=== PATIENT | female | born 1980 | race Caucasian/White ===

== ENCOUNTER 2019-12-02 18:15 | Emergency (ER) | payer BC, SELFPAY ==
--- NOTE | ~2019-12-02 | CT_ITS ---
EXAMINATION: CT abdomen pelvis w con DATE: 12/02/2019 19:56 INDICATION: Bilateral flank pain, left worse than right. Nausea, vomiting, and fever. TECHNIQUE: Computed tomography (CT) of the abdomen and pelvis was performed with 100 mL Omnipaque 350 intravenous contrast. Automated exposure control and iterative reconstruction technique were employe d. The dose-length product was 1457.40 mGy-cm. COMPARISON: CT abdomen and pelvis 01/21/2014 FINDINGS: The visualized portions of the lung bases demonstrate mild atelectasis. No pleural effusion . The heart size is normal. No pericardial effusion. The liver and spleen are normal. There are pearce es of cholecystectomy. The pancreas, adrenal glands, and kidneys are normal. There is diverticulosis of the colon without evidence of diverticulitis. There are no dilated loops of bowel. The appendix is normal. There are no pathologically enlarged lymph nodes. There is no free intraperitoneal fluid. Th ere are changes of anterior and posterior fusion procedures at L4-L5. IMPRESSION: 1. No etiology for the patient's symptoms. Reviewed, dictated and finalized at location A.
--- NOTE | 2019-12-02 18:26 | ED.FEMALEGU ---
HPI - Female Genitourinary General Chief complaint: Abdominal Pain Stated complaint: kidney pain, vomiting, diarrhea Time Seen by Provider: 12/02/19 18:38 Source: patient and family Mode of arrival: ambulatory Limitations: no limitations History of Present Illness HPI Narrative: 39-year-old comes in today complaining of bilateral flank pain, left greater than right, that has been present for 4 days. Patient states that in last 24 hours she has had some nausea and vomiting and diarrhea. She denies fever, cough, cold symptoms, hematuria however she has had some frequent urination. She has remote history of UTIs and no history of urolithiasis. MD elicited complaint: flank pain Onset (ago): day(s) (4) Location of symptoms: flank (L>R) Severity: moderate Female Urogenital Radiation: LLQ Quality of pain: sharp Consistency: constant Vaginal discharge: none Vaginal bleeding: none Urinary symptoms: Urgency and Frequency Exacerbating factors: palpation Relieving factors: none Associated symptoms: nausea and vomiting Patient : No Related Data Home Medications Medication Instructions Recorded Confirmed metoprolol succinate 50 mg PO DAILY 12/02/19 12/02/19 Allergies Allergy/AdvReac Type Severity Reaction Status Date / Time codeine Allergy Unknown Verified 12/02/19 18:49 Review of Systems Constitutional: Constitutional: Denies chills and Denies fatigue Comments: No fever Eyes: Eyes: Denies change in vision and Denies photophobia ENT: Denies dysphagia, Denies nasal congestion and Denies sore throat Cardiovascular: Cardiovascular: Denies chest pain and Denies radiating jaw, neck or arm pain Respiratory: Respiratory: Denies cough, Denies dyspnea and Denies wheezing Gastrointestinal: Gastrointestinal: Reports diarrhea, Reports nausea and Reports vomiting Genitourinary: Genitourinary: Denies hematuria, Reports nocturia, Denies dysuria and Denies urinary incontinence Musculoskeletal: Musculoskeletal: Denies arthralgias and Denies joint swelling Integumentary/Breasts: Skin/Breast: Denies pruritus, Denies erythema and Denies rash Neurologic: Denies vertigo, Denies dizziness and Denies syncope Endocrine: Endocrine: Denies polydipsia and Reports polyuria Hematologic/Lymphatic: Hematologic/Lymphatic: Denies easy bleeding and Denies easy bruising Allergic/Immunologic: Allergic/Immunologic: Denies lip swelling and Denies wheezing PMFSH Past Medical History Medical History Hypertension Surgical History Surgical History History of back surgery History of hysterectomy Social History Social History Smoking status: Never smoker Alcohol intake: never Substance use: current Substance use type: marijuana Living arrangements: with family Exam Const: General: healthy appearing and alert Nutritional Appearance: obese Orientation/consciousness: patient oriented x3 Other: moderate acute distress HENMT: Ears: external ears normal, TM's normal bilaterally and EAC's normal Mouth: Yes Normal oral and palatal mucosa present and Yes moist mucous membranes Throat: posterior oropharynx normal and uvula midline Eyes: Conjunctivae: conjunctivae normal Pupils: Equal, round and reactive pupils present EOM: EOMs intact bilaterally Resp: Effort & Inspection: normal respiratory effort and not labored Auscultation: clear to auscultation bilaterally, no rales, no rhonchi and no wheezes Cardio: Rate: regular rate Rhythm: regular rhythm Heart sounds: no murmurs GI: GI Palp: Yes Soft to palpation, Yes Tenderness to palpation present (GI) ( left lower quadrant and bilateral flanks, left greater than ri), No Guarding due to palpation present (GI), No Rigid due to palpation and No Rebound tenderness present Back/Spine/Pelvis: Back: CVA tenderness Skin:
[2019-12-02 18:39] VITALS: BP 177/99; PULSE 104; RESP 18; TEMP 36.8; O2SAT 99
[2019-12-02 19:00] LABS: Hematocrit 44.6 % (35.0-49.0); Hemoglobin 15.3 g/dL (12.0-15.0); Mean Corpuscular HGB Conc 34.3 g/dL (32.0-36.0); Mean Corpuscular Hemoglobin 32.5 pg (27.0-31.0); Mean Corpuscular Volume 94.7 fL (78.0-102.0); Mean Platelet Volume 9.3 fl (9.2-11.8); Platelet Count Result 313 K/mm3 (150-420); Red Blood Count 4.71 M/mm3 (4.20-5.40); Red Cell Distribution Width 12.8 % (11.6-14.4); White Blood Count 11.1 K/mm3 (4.8-10.8)
[2019-12-02] MEDS: ONDANSETRON INJ 4 MG/2 ML VIAL IV PUSH (19:08)
[2019-12-02 19:09] LABS: Add Urine Microscopic? YES; Appearance Urine Clear (Clear); Bilirubin Urine 1+ (Negative); Blood Urine Negative (Negative); Color Urine Yellow (Yellow); Glucose Urine UA Negative (Negative); Ketones Urine Trace (Negative); Leukocyte Esterase Ur Negative (Negative); Nitrate Urine Negative (Negative); Protein Urine Negative (Negative); Urobilinogen Urine 0.2 mg/dL (0.2-1.0); pH Urine 5.5 (5.0-8.0)
[2019-12-02] MEDS: SODIUM CHLORIDE 0.9% IV 1,000 ML 999 ML IV CONT (19:11)
[2019-12-02] MEDS: MORPHINE SULFATE 4 MG/ML INJ IV PUSH (19:11)
[2019-12-02 19:14] LABS: Partial Thromboplastin Time 28.2 SEC (22.3-31.6); Prothrombin Time 10.8 Seconds (9.64-11.0)
[2019-12-02 19:15] LABS: Alanine Aminotransferase 30 U/L (14-59); Albumin Level 3.6 g/dL (3.4-5.0); Alkaline Phosphatase 128 U/L (46-116); Anion Gap 13.3 mmol/L (7-16); Aspartate Amino Transferase 19 U/L (15-37); Bilirubin,Total 0.3 mg/dL (0.00-1.00); Blood Urea Nitrogen 8 mg/dL (7-18); Carbon Dioxide 29 mmol/L (21-32); Chloride 102 mmol/L (98-108); Estimated CRCL calculation 79 ml/min; Estimated Glomerular Filt Rate > 60; Glucose 98 mg/dL (70-99); Lipase 70 U/L (73-393); Osmolality Calculated 290 mOsm/kg (285-295); Potassium 3.3 mmol/L (3.5-5.1); Sodium 141 mmol/L (136-145); Total Protein 7.7 g/dL (6.4-8.2)
[2019-12-02 19:15] LABS: Bacteria Urine 1+ /hpf; Mucus Urine Moderate /lpf; RBC Urine 0-2 /hpf (0-2); Squamous Epithelial Cell Urine Moderate /hpf (Few); WBC Urine 0-3 /hpf (0-3)
[2019-12-02 19:20] LABS: Lactic Acid Reflex 1.7 mmol/L (0.4-2.0)
[2019-12-02 19:23] LABS: Band Neutrophils Percent 0 % (0-6); Lymphocytes Absolute Manual 4.32 K/mm3 (1.1-4.5); Lymphocytes Percent Manual 39 % (18-44); Neutrophils Percent Manual 46 % (46-73); Total Cells Counted 100
[2019-12-02 19:24] LABS: Basophils Percent Manual 0 % (0-1); Eosinophils Absolute Manual 1.22 K/mm3 (0.02-0.5); Eosinophils Percent Manual 11 % (1-6); Monocytes Absolute Manual 0.44 K/mm3 (0.1-0.90); Monocytes Percent Manual 4 % (3-9); Platelet Estimate Adequate (Adequate)
[2019-12-02] MEDS: CIPROFLOXACIN 400 MG/D5W 200ML 200 ML 200 MG IVPB (20:23)
[2019-12-02 21:16] VITALS: BP 123/72; PULSE 82; RESP 20; TEMP 36.4; O2SAT 99
== END 2019-12-02 21:21 | disposition home or self-care (01) ==
PROVIDERS: Emergency Provider Emergency Medicine; PCP Family Medicine
DX: R10.9 Unspecified abdominal pain (principal)
CPT/HCPCS: 36415; 74177; 80053; 81001; 83605; 83690; 85025; 85610; 85730; 87040; 87077; 87086; 87088; 96361; 96365; 96375; 99283; 99284; J0744; J2270; J2405; J7030; Q9965

== ENCOUNTER 2021-04-06 08:07 | Outpatient (CLI) | payer BC, SELFPAY ==
--- NOTE | ~2021-04-06 | XR_ITS ---
EXAMINATION: XR lumbar spine 2-3V DATE: 04/06/2021 08:34 INDICATION: Low back pain TECHNIQUE: Anteroposterior and lateral views of the lumbar spine, and cone-down lateral view of the l umbosacral junction were obtained. COMPARISON: 11/06/2017 FINDINGS: There are changes of anterior and posterior fusion at L4-5 and laminectomy. There are 2 mm of unchanged retrolisthesis of L3 on L4. The vertebral body heights are maintained. There is no fract ure. IMPRESSION: 1. Surgical changes without acute osseous abnormality. Reviewed, dictated and finalized at location A.
== END 2021-04-06 08:08 | disposition home or self-care (01) ==
LOC: CHSIMG 08:11
PROVIDERS: PCP Family Medicine; Visit Provider Family Medicine
DX: M54.5 Low back pain (principal)
CPT/HCPCS: 72100

== ENCOUNTER 2021-04-24 08:09 | Outpatient (RCR) | payer BC, SELFPAY ==
--- NOTE | 2021-04-24 07:40 | PTOPEVAL ---
Thank you for referring Kiara Clark to [facility].? The patient is scheduled to be seen for therapy? _3___x/week for 12 visits. Please review, sign, date and return this plan of care BESS. I agree with and certify that the following plan of care is medically necessary. Referring Physician Date Admitting Provider: Attending Provider: Lance Macedo MD Referring Provider: *PT Outpatient Evaluation Start: 04/24/21 06:54 Freq: Status: Active Protocol: Document 04/24/21 06:54 NAYE (Rec: 04/24/21 07:40 [email or web address] [id number]) Therapy Assessment Status Assessment Status Assessment Status Evaluation Outpatient Past Medical History Cardiovascular History Hx Hypertension Yes Gastrointestinal History Hx Cholecystectomy Yes Musculoskeletal History Hx Orthopedic Surgery Yes: carpal tunnel Reproductive History Hx Hysterectomy Yes Evaluation Information Problem Diagnosis low back pain Onset 03/29/21 Subjective Information Pt. reports that while at work Query Text:As Reported By Patient/ developed low back pain. she Family reports she was moving boxes and felt a twinge of pain. she states that she returned to work about 3-4 days later and pain and worsened and she left work. She reports she has been off work since. She states that her pain is on the right side of the low back. She has a history of prior lumbar fusion. she reports standing and walking, as well as lifting will worsen her pain. She reports that she only stands for about 30 minutes before having to sit down due to pain. She reports she will get pain that radiates down the back of the right thigh and can go into the right foot. She reports that her goal is to decrease her low back pain with all activities. Previous Treatments Previous Treatments For This Problem Steroids, which did not give relief. Taking Aleve each morning currently. Prior Level of Function Comments Additional Prior Level of Function Pt. has hx of prior lumbar Comments fus
--- NOTE | 2021-05-22 08:07 | PTOPEVAL ---
Thank you for referring Kiara Clark to [facility].? The patient is scheduled to be seen for therapy? ____x/week for ___ weeks. Please review, sign, date and return this plan of care BESS. I agree with and certify that the following plan of care is medically necessary. Referring Physician Date Admitting Provider: Attending Provider: Lance Macedo MD Referring Provider: *PT Outpatient Evaluation Start: 04/24/21 06:54 Freq: Status: Active Protocol: Document 05/22/21 06:51 ACR (Rec: 05/22/21 08:06 [email or web address] [id number]) Therapy Assessment Status Assessment Status Assessment Status Discharge Outpatient Past Medical History Cardiovascular History Hx Hypertension Yes Gastrointestinal History Hx Cholecystectomy Yes Musculoskeletal History Hx Orthopedic Surgery Yes: carpal tunnel Reproductive History Hx Hysterectomy Yes Evaluation Information Problem Diagnosis low back pain Onset 03/29/21 Subjective Information Patient reports that she has Query Text:As Reported By Patient/ not improved any and recently Family got an MRI. Her doctor is sending her to pain management so, she would like to be discharged at this time. Pain Assessment Timing of Pain Assessment Timing of Pain Assessment Assessment Pain Scale Pain Scale Used Numeric (1 - 10) Self Report Pain Assessment Right Lower Back Reported Pain Level 7 Lowest Pain Intensity 7 Greatest Pain Intensity 10 Pain Score Pain Score 7: Self Report Interventions Used Interventions Used By Clinicians Activity or ADL's,Electrical Stimulation,Exercise,Heat Cervical and Lumbar ROM Lumbar ROM Lumbar Flexion Active [place] Query Text:Hands to: Lumbar Extension (0-40) 15 Query Text:Active in Degrees Lumbar Lateral Flexion Right (0-40) 30 Query Text:Active in Degrees Lumbar Lateral Flexion Left (0-40) 30 Query Text:Active in Degrees Lateral Rotation Right (0-45) 30 Query Text:Active in Degrees Lateral Rotation Left (0-45) 30 Query Text:Active in Degrees Cervical and Lumbar Muscle Testing Lumbar Strength Upper Abdominal Strength 3+Fair+ Lower Abdominal Strength 3 Fair Abdominal Obliques 3 Fair Lower Extremity Muscle Strength Testing General Lower Extremity Strength Gross Lower Extremity Strength R hip flexion: 3+/5 R hip abduction: 4-/5 L hip abduction: 4+/5 R ankle DF: 3+/5 Muscle Length Testing Muscle Length Testing
== END 2021-05-22 10:55 | disposition home or self-care (01) ==
LOC: CHSPT 08:09
PROVIDERS: PCP Family Medicine; Visit Provider Family Medicine
DX: M54.5 Low back pain (principal); M48.061 Spinal stenosis, lumbar region without neurogenic claudication
CPT/HCPCS: 97014; 97110; 97161; G0283

== ENCOUNTER 2021-05-06 06:50 | Outpatient (CLI) | payer BC, SELFPAY ==
--- NOTE | ~2021-05-06 | MR_ITS ---
EXAMINATION: MR lumbar spine wo con EXAM DATE: 05/06/2021 09:44 INDICATION: Spinal stenosis. TECHNIQUE: Multi-sequential, multiplanar MR images of the lumbar spine were obtained without contrast . Sagittal T1, T2, T2 fat saturation images. Axial T2 weighted images. Correlation is made to lumba r x-ray 2018.. FINDINGS: There is posterior and interbody fusion L5-S1. The vertebral bodies are aligned in the AP d imension. Vertebral body and disc heights are well-maintained. The conus medullaris terminates at the L1/2 level and has normal signal intensity and morphology. There are no suspicious marrow signal ab normalities. Paraspinal soft tissue is unremarkable. Level by level evaluation: T12-L1: Disc does not extend beyond the endplate margin. Facet arthropathy: None. Neural foraminal stenosis: No stenosis. Central canal stenosis: No stenosis. L1-L2: Disc does not extend beyond the endplate margin. Facet arthropathy: None. Neural foraminal stenosis: No stenosis. Central canal stenosis: No stenosis. L2-L3: Disc does not extend beyond the endplate margin. Facet arthropathy: Mild. Neural foraminal stenosis: No stenosis. Central canal stenosis: No stenosis. L3-L4: Disc does not extend beyond the endplate margin. Facet arthropathy: Mild to moderate. Neural foraminal stenosis: No stenosis. Central canal stenosis: No stenosis. L4-L5: Disc does not extend beyond the endplate margin. Facet arthropathy: Mild to moderate. Neural foraminal stenosis: No stenosis. Central canal stenosis: No stenosis. L5-S1: Disc does not extend beyond the endplate margin. Facet arthropathy: Poorly visualized. Neural foraminal stenosis: Mild to moderate right. Central canal stenosis: No stenosis. Laminectomies. IMPRESSION: 1. L5-S1 lumbar fusion. 2. Mild to moderate facet arthropathy. Reviewed, dictated and finalized at location B.
== END 2021-05-06 06:51 | disposition home or self-care (01) ==
LOC: CHSIMG 06:51
PROVIDERS: PCP Family Medicine; Visit Provider Family Medicine
DX: M48.07 Spinal stenosis, lumbosacral region (principal)
CPT/HCPCS: 72148

== ENCOUNTER 2021-09-13 18:28 | Outpatient (CLI) | payer MEDICAID, SELFPAY ==
--- NOTE | ~2021-09-13 | XR_ITS ---
EXAMINATION: XR abdomen obstructive series EXAM DATE: 09/13/2021 19:05 INDICATION: LUQ abd pain x 3 days. . TECHNIQUE: Frontal upright projection of the upper abdomen, frontal projection of the lower abdomen f or interpretation. There is no prior study for comparison. FINDINGS: There is mild to moderate symmetric bilateral hip and mild sacroiliac joint primary osteoar thritis. L5-S1 lumbar fusion. There are cholecystectomy clips. Expected amount of colonic stool and gas. No small bowel dilation. There is no organomegaly. Lung bases unremarkable. IMPRESSION: Expected amount of colonic stool and gas. Reviewed, dictated and finalized at location A. 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
[2021-09-13 19:22] LABS: Hematocrit 45.9 % (35.0-49.0); Hemoglobin 15.9 g/dL (12.0-15.0); Mean Corpuscular HGB Conc 34.6 g/dL (32.0-36.0); Mean Corpuscular Hemoglobin 32.4 pg (27.0-31.0); Mean Corpuscular Volume 93.5 fL (78.0-102.0); Mean Platelet Volume 9.2 fl (9.2-11.8); Platelet Count Result 337 K/mm3 (150-420); Red Blood Count 4.91 M/mm3 (4.20-5.40); Red Cell Distribution Width 11.8 % (11.6-14.4); White Blood Count 8.8 K/mm3 (4.8-10.8)
[2021-09-13 19:57] LABS: Alanine Aminotransferase 28 U/L (14-59); Albumin Level 3.6 g/dL (3.4-5.0); Alkaline Phosphatase 72 U/L (46-116); Amylase 38 U/L (25-115); Anion Gap 11 mmol/L (8-16); Aspartate Amino Transferase 13 U/L (15-37); Bilirubin,Total 0.3 mg/dL (0.00-1.00); Blood Urea Nitrogen 10 mg/dL (7-18); Calcium 9.3 mg/dL (8.5-10.1); Carbon Dioxide 28 mmol/L (21-32); Chloride 101 mmol/L (98-108); Estimated Glomerular Filt Rate > 60; Glucose 99 mg/dL (70-99); Lipase 98 U/L (73-393); Osmolality Calculated 289 mOsm/kg (285-295); Potassium 3.7 mmol/L (3.5-5.1); Sodium 140 mmol/L (136-145)
== END 2021-09-13 18:29 | disposition home or self-care (01) ==
LOC: CHSLAB 18:30
PROVIDERS: PCP Family Medicine; Visit Provider Family Medicine
DX: R10.9 Unspecified abdominal pain (principal); I10 Essential (primary) hypertension
CPT/HCPCS: 36415; 74019; 80053; 82150; 83690; 85027

== ENCOUNTER 2021-11-13 08:07 | Outpatient (CLI) | payer BC, MEDICAID, SELFPAY ==
--- NOTE | 2021-11-14 13:42 | WPDHOMESLEEP ---
Sleep Study - Home Unattended Date of Study: 11/13/21 Ordering Provider: Cris Lang DO Interpreting Provider: Cris Lang DO Home Sleep Study Type: Apnea Link Air Height: 1.57 m Weight: 113.398 kg Body Mass Index: 45.7 Neck Circumference (inches): 18 [place]: 7 Reason for Sleep Study Unrefreshing sleep and daytime hypersomnia Sleep History The patient is a 41-year-old female with high blood pressure, GERD, hot flashes and tobacco abuse that had a sleep study ordered by her primary care physician. The patient is currently unemployed. The patient rarely awakens from sleep short of breath. She frequently awakens at night with heartburn, belching or cough. She frequently snores loud enough that others complain. She occasionally has trouble sleeping when she has a cold. She denies waking up gasping for air throughout the night. She denies having breathing problems at night observed by others. She frequently sweats excessively at night. She rarely notices heart palpitations or irregular heartbeats during the night. She occasionally falls asleep during the day but never while driving. She denies cataplexy. She rarely feels unable to move while waking up or falling asleep. She occasionally experiences vivid dreamlike scenes upon awakening or falling asleep. She occasionally has nightmares. She frequently has thoughts racing through her mind. She frequently feels sad or depressed. She constantly has anxiety. She occasionally has muscular tension. She occasionally notices parts of her body jerk. She rarely kicks during the night. She rarely experiences crawling and aching feelings in her legs. She occasionally has leg pain during the night. She rarely grinds her teeth during sleep and rarely awakens with morning jaw pain. She is frequently bothered by pain during the day and occasionally awakened by pain during the night. She frequently wakes up feeling stiff in the morning with sore or achy muscles. She constantly wakes up with pain in the neck, spine or other joints. She goes to bed at 9:00 p.m. on weekdays and 11:00 p.m. on weekends. It can take up to an hour for her to fall asleep. She wakes up 5-6 times throughout the night. When she awakens, she will reposition herself and try to fall back asleep. He can take 20-30 minutes to fall back asleep. She wakes up at 5:00 a.m. on the week days and 8:00 a.m. on the weekends. She tries to get 8 hours of sleep per night. She does not stay in bed after waking up in the morning. She currently lives with her boyfriend. She does not consume any caffeinated beverages within 2 hours of bedtime. She does not engage in physical exercise before bedtime. She does not read or watch television before falling asleep. She does not take naps in the afternoon or the evening. She drinks 2 cups of coffee daily. She currently smokes half a pack a cigarettes per day. She denies alcohol recreational drug use. [facility] Past Medical History Medical History (Updated 11/14/21 @ 13:51 by Cris Lang DO) Hypertension Surgical History Surgical History History of back surgery History of hysterectomy Social History Social History Smoking status: Never smoker Alcohol intake: never Substance use: current Substance use type: marijuana Medications Home Medications Medication Instructions Recorded Confirmed Type ciprofloxacin HCl 500 mg PO Q12H #20 tablet 12/02/19 Rx metoprolol succinate 50 mg PO DAILY 12/02/19 12/02/19 History ondansetron 4 mg PO Q6H PRN #10 tablet 12/02/19 Rx tramadol [Ultram] 50 mg PO Q6H PRN #14 tablet 12/02/19 Rx Sleep Procedure This test was performed using 4 channel monitoring including respiratory effort channel, snoring channel, heart rate channel, and oxygen saturation channel. This study was scored using [facility] g
[2021-11-14 13:52] VITALS: BMI 45.7
== END 2021-11-14 10:48 | disposition home or self-care (01) ==
LOC: ANHCSM 08:07
PROVIDERS: PCP Family Medicine; Visit Provider Family Medicine
DX: G47.30 Sleep apnea, unspecified (principal); G47.33 Obstructive sleep apnea (adult) (pediatric)
CPT/HCPCS: 95806

== ENCOUNTER 2021-12-04 08:47 | Outpatient (CLI) | payer BC, MEDICAID, SELFPAY ==
--- NOTE | ~2021-12-04 | XR_ITS ---
EXAMINATION: XR abdomen obstructive series DATE: 12/04/2021 09:28 INDICATION: Upper abdominal pain TECHNIQUE: Upright and supine views of the abdomen were obtained. COMPARISON: 09/13/2021 FINDINGS: There is no free intraperitoneal gas or evidence of bowel obstruction. There are no dilated loops of bowel. The bowel gas pattern is normal. Cholecystectomy clips are noted. There are changes of anterior posterior fusion of the lumbar spine. There is mild osteoarthritis of the hips. IMPRESSION: 1. Nonobstructive bowel gas pattern. Reviewed, dictated and finalized at location A.
[2021-12-04 09:06] LABS: Add Urine Microscopic? NO; Appearance Urine Clear (Clear); Basophils Absolute Auto 0.06 K/mm3 (0.00-0.10); Basophils Percent Auto 0.7 % (0.0-1.0); Bilirubin Urine Negative (Negative); Blood Urine Negative (Negative); Color Urine Yellow (Yellow); Eosinophils Absolute Auto 0.47 K/mm3 (0.02-0.50); Eosinophils Percent Auto 5.7 % (1.0-6.0); Glucose Urine UA Negative (Negative); Hematocrit 42.1 % (35.0-49.0); Hemoglobin 14.6 g/dL (12.0-15.0); Immature Granulocyte Absolute 0.02 K/mm3 (0.00-0.00); Immature Granulocyte Percent A 0.2 % (0.0-0.0); Ketones Urine Negative (Negative); Leukocyte Esterase Ur Negative (Negative); Lymphocytes Absolute Auto 2.85 K/mm3 (1.10-4.50); Lymphocytes Percent Auto 34.8 % (18.0-42.0); Mean Corpuscular HGB Conc 34.7 g/dL (32.0-36.0); Mean Corpuscular Hemoglobin 32.5 pg (27.0-31.0); Mean Corpuscular Volume 93.8 fL (78.0-102.0); Mean Platelet Volume 9.3 fl (9.2-11.8); Monocytes Percent Auto 6.1 % (2.0-11.0); Neutrophils Absolute Auto 4.3 K/mm3 (1.7-7.2); Neutrophils Percent Auto 52.5 % (50.0-70.0); Nitrate Urine Negative (Negative); Platelet Count Result 311 K/mm3 (150-420); Protein Urine Negative (Negative); Red Blood Count 4.49 M/mm3 (4.20-5.40); Red Cell Distribution Width 12.3 % (11.6-14.4); Urobilinogen Urine 0.2 mg/dL (0.2-1.0); White Blood Count 8.2 K/mm3 (4.8-10.8)
[2021-12-04 09:59] LABS: Alanine Aminotransferase 28 U/L (14-59); Albumin Level 3.6 g/dL (3.4-5.0); Alkaline Phosphatase 73 U/L (46-116); Amylase 35 U/L (25-115); Anion Gap 9 mmol/L (8-16); Aspartate Amino Transferase 17 U/L (15-37); Bilirubin,Total 0.3 mg/dL (0.00-1.00); Blood Urea Nitrogen 12 mg/dL (7-18); Calcium 9.3 mg/dL (8.5-10.1); Carbon Dioxide 29 mmol/L (21-32); Chloride 98 mmol/L (98-108); Estimated Glomerular Filt Rate > 60; Glucose 96 mg/dL (70-99); Osmolality Calculated 281 mOsm/kg (285-295); Sodium 136 mmol/L (136-145); Total Protein 7.3 g/dL (6.4-8.2)
[2021-12-04 13:28] LABS: Occult Blood Negative (Negative)
[2021-12-04 13:28] LABS: Occult Blood Negative (Negative)
== END 2021-12-04 08:48 | disposition home or self-care (01) ==
LOC: CHSLAB 08:50
PROVIDERS: PCP Family Medicine; Visit Provider Family Medicine
DX: R10.9 Unspecified abdominal pain (principal); R19.7 Diarrhea, unspecified
CPT/HCPCS: 36415; 74019; 80053; 81003; 82150; 82272; 85025; 87045; 87272; 87324; 87427

== ENCOUNTER 2022-05-10 09:47 | Outpatient (CLI) | payer OTHER, SELFPAY ==
[2022-05-10 10:36] LABS: Strep Group A RT-PCR Not Detected (Negative)
[2022-05-10 10:51] LABS: Influenza A QL RT-PCR Negative (Negative); Influenza B QL RT-PCR Negative (Negative); SARS-CoV-2 RNA PCR Negative (Negative)
== END 2022-05-10 09:48 | disposition home or self-care (01) ==
PROVIDERS: PCP Family Medicine; Visit Provider Family Medicine
DX: J02.9 Acute pharyngitis, unspecified (principal); Z20.822 Contact with and (suspected) exposure to COVID-19
CPT/HCPCS: 87502; 87651; C9803; U0003; U0005

== ENCOUNTER 2022-10-08 11:33 | Outpatient (CLI) | payer OTHER, SELFPAY ==
--- NOTE | ~2022-10-08 | XR_ITS ---
EXAMINATION: XR abdomen obstructive series DATE: 10/08/2022 12:09 INDICATION: Upper abdominal pain. TECHNIQUE: Upright and supine views of the abdomen on 4 radiographs were obtained. COMPARISON: CT abdomen and pelvis 12/02/2019 FINDINGS: There are no dilated loops of bowel. There is a small volume of stool in the colon. No free intraperitoneal gas. Surgical clips in the right upper quadrant are likely from cholecystectomy. 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 There are changes of anterior and p osterior fusion procedures in lumbar spine. IMPRESSION: 1. Normal bowel gas pattern. Reviewed, dictated and finalized at location A. 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
[2022-10-08 11:53] LABS: Add Urine Microscopic? NO; Appearance Urine Clear (Clear); Basophils Absolute Auto 0.05 K/mm3 (0.00-0.10); Basophils Percent Auto 0.8 % (0.0-1.0); Bilirubin Urine Negative (Negative); Blood Urine Negative (Negative); Color Urine Yellow (Yellow); Eosinophils Absolute Auto 0.18 K/mm3 (0.02-0.50); Eosinophils Percent Auto 2.7 % (1.0-6.0); Glucose Urine UA Negative (Negative); Hematocrit 41.9 % (35.0-49.0); Hemoglobin 14.3 g/dL (12.0-15.0); Immature Granulocyte Absolute 0.01 K/mm3 (0.00-0.00); Immature Granulocyte Percent A 0.2 % (0.0-0.0); Ketones Urine Negative (Negative); Leukocyte Esterase Ur Negative LEU/UL (Negative); Lymphocytes Absolute Auto 2.78 K/mm3 (1.10-4.50); Mean Corpuscular HGB Conc 34.1 g/dL (32.0-36.0); Mean Corpuscular Hemoglobin 32.6 pg (27.0-31.0); Mean Corpuscular Volume 95.4 fL (78.0-102.0); Mean Platelet Volume 9.4 fl (9.2-11.8); Monocytes Absolute Auto 0.46 K/mm3 (0.10-0.90); Monocytes Percent Auto 6.9 % (2.0-11.0); Neutrophils Absolute Auto 3.1 K/mm3 (1.7-7.2); Neutrophils Percent Auto 47.4 % (50.0-70.0); Nitrate Urine Negative (Negative); Platelet Count Result 266 K/mm3 (150-420); Protein Urine Negative (Negative); Red Blood Count 4.39 M/mm3 (4.20-5.40); Red Cell Distribution Width 12.6 % (11.6-14.4); Specific Grav Ur 1.025 (1.010-1.020); Urobilinogen Urine 0.2 mg/dL (0.2-1.0); White Blood Count 6.6 K/mm3 (4.8-10.8)
[2022-10-08 12:33] LABS: Alanine Aminotransferase 26 U/L (14-59); Albumin Level 3.7 g/dL (3.4-5.0); Alkaline Phosphatase 74 U/L (46-116); Amylase 36 U/L (25-115); Anion Gap 8 mmol/L (8-16); Aspartate Amino Transferase 18 U/L (15-37); Bilirubin,Total 0.4 mg/dL (0.00-1.00); Blood Urea Nitrogen 10 mg/dL (7-18); Calcium 9.6 mg/dL (8.5-10.1); Carbon Dioxide 35 mmol/L (21-32); Chloride 101 mmol/L (98-108); Estimated Glomerular Filt Rate > 60; Glucose 100 mg/dL (70-99); Lipase 42 U/L (16-77); Osmolality Calculated 297 mOsm/kg (285-295); Potassium 4.1 mmol/L (3.5-5.1); Sodium 144 mmol/L (136-145); Thyroid Stimulating Hormone 1.35 uIU/mL (0.36-3.74); Total Protein 7.7 g/dL (6.4-8.2)
== END 2022-10-08 11:34 | disposition home or self-care (01) ==
PROVIDERS: PCP Family Medicine; Visit Provider Family Medicine
DX: R10.9 Unspecified abdominal pain (principal)
CPT/HCPCS: 36415; 74019; 80053; 81003; 82150; 83690; 84443; 85025

== ENCOUNTER 2022-10-08 18:22 | Emergency (ER) | payer OTHER, SELFPAY ==
--- NOTE | ~2022-10-08 | CT_ITS ---
EXAMINATION: CT abdomen pelvis w con DATE: 10/08/2022 19:28 INDICATION: abd pain, vomiting TECHNIQUE: Computed tomography (CT) of the abdomen and pelvis was performed with 100 mL Omnipaque-350 intravenous contrast. Automated exposure control and iterative reconstruction technique were employe d. The dose-length product was 1313.13 mGy-cm. COMPARISON: None. FINDINGS: Lower thorax: Unremarkable Liver: Enlarged. Diffuse fatty infiltration. Biliary/Gallbladder: Gallbladder is absent. No bile duct dilation. Pancreas: No mass or duct dilation. Spleen: Normal. Adrenals:No mass. Kidneys: No mass, stone, or hydronephrosis. GI tract: Distal esophageal and antral wall edema. No small or large bowel dilation. Normal appendix. Diverticulosis without diverticulitis. Uniform bowel wall enhancement. Mesentery/Peritoneum: No ascites, mass, or free air. Retroperitoneum: No mass. Pelvis: Status post hysterectomy. The right ovary is not visualized and is also likely surgically abs ent. Multiple small left ovarian cysts and/or dominant follicles. Soft Tissues: Soft tissues and body wall unremarkable. Bones: No acute osseous finding. Uncomplicated appearing L4-5 posterior fusion. IMPRESSION: Esophagitis/gastritis. Hepatomegaly with steatosis. Reviewed, dictated and finalized at location K. 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
[2022-10-08 18:28] VITALS: BP 126/98; PULSE 88; O2SAT 100
--- NOTE | 2022-10-08 18:28 | ED.ABDPAIN ---
HPI - Abdominal Pain General Chief Complaint: Abdominal Pain Stated Complaint: upper abd pain Time Seen by Provider: 10/08/22 18:28 Source: patient Mode of arrival: ambulatory Limitations: no limitations History of Present Illness HPI narrative: Patient is a 42-year-old female with a history of hypertension, acid reflux, presenting to the emergency department for evaluation of upper abdominal pain, nausea and vomiting. Patient states that symptoms have been ongoing over the past 10 months, worsening in severity. Patient reports aching epigastric pain as well as left upper quadrant pain. She reports inability to tolerate oral intake over the past several days, states that as soon as she swallows she seems to vomit. She denies any diarrhea or significant constipation. She denies any lower abdominal pain or cramping type sensation. No ripping or tearing sensation to the flank. She has been managed by her primary care physician for symptoms over the past several months, was initiated on omeprazole without any improvement in her symptoms. Patient then had a KUB done of the abdomen which was noted to show a saccular aneurysm, patient had not yet spoken to the primary care physician regarding her imaging results and was concerned, thus decided she wanted to seek a second opinion at this hospital patient denies any fever or chills. Denies any cough or shortness of breath. Patient without any alicia chest pain currently. She denies any hemoptysis, pleuritic chest pain. Denies leg swelling or calf pain. Related Data Home Medications Medication Instructions Recorded Confirmed metoprolol succinate 50 mg 50 mg PO DAILY 12/02/19 12/02/19 tablet,extended release 24 hr Allergies Allergy/AdvReac Type Severity Reaction Status Date / Time codeine Allergy Unknown Verified 12/02/19 18:49 Review of Systems Review of Systems: CONSTITUTIONAL: Denies fever, chills, or sweats. EYES: Denies visual changes, redness, or discharge. ENT: Denies rhinorrhea, congestion, sore throat, or otalgia. CARDIOVASCULAR: Denies current chest pain, palpitations, or edema. RESPIRATORY: Denies cough or dyspnea. GASTROINTESTINAL: Reports upper abdominal pain, nausea and vomiting GENITOURINARY: Denies dysuria or hematuria. SKIN: Denies rash or itching. MUSCULOSKELETAL: Reports occasional radiation of the pain to the left back NEUROLOGIC: Denies headache, numbness, or weakness. [facility] Past Medical History Medical History (Updated 10/08/22 @ 19:34 by Sherlyn Campos MD) Hypertension Surgical History Surgical History History of back surgery History of hysterectomy Social History Social History Smoking status: Never smoker Alcohol intake: never Substance use: current Substance use type: marijuana Living arrangements: with family Exam Narrative: GENERAL: Awake, alert, conversant HEAD: Normocephalic, atraumatic. EYES: PERRLA and EOMI. ENT: Nares clear, no rhinorrhea or epistaxis. Mucous membranes moist. NECK: Supple. CHEST: No respiratory distress, breathing even and non labored HEART: Regular rate, sinus rhythm ABDOMEN:Non distended, tender in the epigastrium and LUQ, no rebound rigidity or guarding, no flank tenderness EXTREMITIES: Normal range of motion. No edema. SKIN: Warm, dry, no rash. NEURO:No focal deficits. Alert and oriented x3 Course Vital Signs Vital signs: Vital Signs Pulse Rate 88 10/08/22 18:28 Blood Pressure 126/98 H 10/08/22 18:28 Pulse Oximetry 100 10/08/22 18:28 Oxygen Delivery Room Air 10/08/22 18:28 Pulse Rate 88 10/08/22 18:28 Blood Pressure 126/98 H 10/08/22 18:28 Pulse Oximetry 100 10/08/22 18:28 Oxygen Delivery Room Air 10/08/22 18:28 MDM - Abdominal Pain MDM Narrative Medical decision making narrative: Patient presented to the emergency department for eval
[2022-10-08 18:41] LABS: Basophils Percent Auto 0.4 % (0.2-1.2); Eosinophils Absolute Auto 0.3 K/mm3 (0-0.3); Eosinophils Percent Auto 3.3 % (0-4.4); Hematocrit 43.8 % (37.0-47.0); Hemoglobin 15.1 g/dL (12.0-15.0); Immature Granulocyte Absolute 0.01 K/mm3 (0.00-0.031); Immature Granulocyte Percent A 0.1 % (0-0.5); Lymphocytes Absolute Auto 3.32 K/mm3 (0.9-3.2); Lymphocytes Percent Auto 43.3 % (18.3-44.2); Mean Corpuscular HGB Conc 34.5 g/dl (32-36); Mean Corpuscular Hemoglobin 32.9 pg (26-34); Mean Corpuscular Volume 95.4 fl (80-100); Mean Platelet Volume 9.4 fl (7.4-10.4); Monocytes Absolute Auto 0.6 K/mm3 (0.1-0.6); Monocytes Percent Auto 8.1 % (2.6-8.5); Neutrophils Absolute Auto 3.4 K/mm3 (1.3-6.7); Neutrophils Percent Auto 44.8 % (45.5-73.1); Platelet Count Result 282 k/mm3 (150-375); Red Blood Count 4.59 M/mm3 (4.2-5.4); Red Cell Distribution Width 12.8 % (11.5-14.5); White Blood Count 7.7 K/mm3 (4.5-10.0)
[2022-10-08 18:49] LABS: Alanine Aminotransferase 27 U/L (6-35); Albumin Level 4.7 g/dL (3.5-5.1); Alkaline Phosphatase 81 U/L (38-126); Anion Gap 7 mmol/L (8-16); Aspartate Amino Transferase 33 U/L (14-36); Bilirubin,Total 0.5 mg/dL (0.2-1.3); Blood Urea Nitrogen 14 mg/dL (7-17); Calcium 9.5 mg/dL (8.4-10.2); Carbon Dioxide 34 mmol/L (22-30); Chloride 96 mmol/L (98-107); Estimated CRCL calculation 105 ml/min; Estimated Glomerular Filt Rate > 60; Glucose 105 mg/dL (65-110); Lipase 113 U/L (23-300); Potassium 3.3 mmol/L (3.4-5.0); Sodium 137 mmol/L (137-145)
[2022-10-08] MEDS: ONDANSETRON INJ 4 MG/2 ML VIAL IV PUSH (19:31)
[2022-10-08] MEDS: SODIUM CHLORIDE 0.9% IV 1,000 ML 999 ML IV CONT (19:31)
[2022-10-08] MEDS: FAMOTIDINE 20 MG/2 ML VIAL IV PUSH (19:31)
[2022-10-08] MEDS: DICYCLOMINE HCL INJ 20 MG/2 ML VIAL IM (19:31)
[2022-10-08 20:29] VITALS: BP 128/57; PULSE 79; RESP 18; O2SAT 97
== END 2022-10-08 20:33 | disposition home or self-care (01) ==
PROVIDERS: Emergency Provider Emergency Medicine; PCP Family Medicine
DX: R10.13 Epigastric pain (principal); R10.12 Left upper quadrant pain; I10 Essential (primary) hypertension; K21.9 Gastro-esophageal reflux disease without esophagitis; Z90.710 Acquired absence of both cervix and uterus; K20.90 Esophagitis, unspecified without bleeding; K29.70 Gastritis, unspecified, without bleeding; K76.0 Fatty (change of) liver, not elsewhere classified
CPT/HCPCS: 36415; 74177; 80053; 83690; 85025; 96361; 96372; 96374; 96375; 99284; J0500; J2405; J7030; Q9967

== ENCOUNTER 2022-10-15 14:17 | Outpatient (CLI) | payer OTHER, SELFPAY ==
[2022-10-15 15:41] LABS: CRP < 0.5 mg/dL (<1.0)
[2022-10-15 15:44] LABS: Erythrocyte Sedimentation Rate 35 mm/hr (0-20)
[2022-10-19 15:54] LABS: Gliadin AB, IgG <1.0 U/mL (<15.0); TTG IGA AB <1.0 U/mL (<15.0)
== END 2022-10-15 14:18 | disposition home or self-care (01) ==
LOC: ANHLAB 14:19
PROVIDERS: PCP Family Medicine; Visit Provider Nurse Practitioner
DX: R10.13 Epigastric pain (principal); R10.12 Left upper quadrant pain; R11.2 Nausea with vomiting, unspecified; R63.4 Abnormal weight loss; I72.8 Aneurysm of other specified arteries; E66.9 Obesity, unspecified; G47.33 Obstructive sleep apnea (adult) (pediatric); I10 Essential (primary) hypertension; R07.9 Chest pain, unspecified
CPT/HCPCS: 36415; 83516; 85652; 86140; 86255

== ENCOUNTER 2022-10-18 11:39 | Outpatient (CLI) | payer OTHER, SELFPAY ==
[2022-10-18 12:11] LABS: Basophils Absolute Auto 0.1 K/mm3 (0.0-0.1); Basophils Percent Auto 0.7 % (0.2-1.2); Eosinophils Absolute Auto 0.4 K/mm3 (0-0.3); Hematocrit 42.2 % (37.0-47.0); Hemoglobin 14.6 g/dL (12.0-15.0); Immature Granulocyte Absolute 0.02 K/mm3 (0.00-0.031); Immature Granulocyte Percent A 0.2 % (0-0.5); Lymphocytes Absolute Auto 2.79 K/mm3 (0.9-3.2); Lymphocytes Percent Auto 32.3 % (18.3-44.2); Mean Corpuscular HGB Conc 34.6 g/dl (32-36); Mean Corpuscular Hemoglobin 32.4 pg (26-34); Mean Corpuscular Volume 93.6 fl (80-100); Mean Platelet Volume 9.4 fl (7.4-10.4); Monocytes Absolute Auto 0.6 K/mm3 (0.1-0.6); Monocytes Percent Auto 7.3 % (2.6-8.5); Neutrophils Absolute Auto 4.8 K/mm3 (1.3-6.7); Neutrophils Percent Auto 55.5 % (45.5-73.1); Platelet Count Result 328 k/mm3 (150-375); Red Blood Count 4.51 M/mm3 (4.2-5.4); Red Cell Distribution Width 12.8 % (11.5-14.5); White Blood Count 8.7 K/mm3 (4.5-10.0)
[2022-10-18 12:22] LABS: Alanine Aminotransferase 30 U/L (6-35); Albumin Level 4.7 g/dL (3.5-5.1); Alkaline Phosphatase 70 U/L (38-126); Anion Gap 7 mmol/L (8-16); Aspartate Amino Transferase 26 U/L (14-36); Bilirubin,Total 0.5 mg/dL (0.2-1.3); Blood Urea Nitrogen 14 mg/dL (7-17); Calcium 9.2 mg/dL (8.4-10.2); Carbon Dioxide 26 mmol/L (22-30); Chloride 100 mmol/L (98-107); Estimated Glomerular Filt Rate > 60; Glucose 99 mg/dL (65-110); Lipase 135 U/L (23-300); Potassium 3.5 mmol/L (3.4-5.0); Sodium 133 mmol/L (137-145)
[2022-10-18 12:26] LABS: INR 0.9; Prothrombin Time 12.2 Seconds (11.1-14.7)
== END 2022-10-18 11:40 | disposition home or self-care (01) ==
PROVIDERS: PCP Family Medicine; Visit Provider Nurse Practitioner
DX: E66.9 Obesity, unspecified (principal); G47.33 Obstructive sleep apnea (adult) (pediatric); I10 Essential (primary) hypertension; I72.8 Aneurysm of other specified arteries; R07.9 Chest pain, unspecified; R10.12 Left upper quadrant pain; R10.13 Epigastric pain; R11.2 Nausea with vomiting, unspecified; R63.4 Abnormal weight loss
CPT/HCPCS: 36415; 80053; 83690; 85025; 85610

== ENCOUNTER 2022-10-24 17:26 | Emergency (ER) | payer OTHER, SELFPAY ==
[2022-10-24 17:30] VITALS: BP 128/100; PULSE 89; RESP 20; TEMP 36.9; O2SAT 100
--- NOTE | 2022-10-24 17:34 | ECG_ITS ---
Measurements Intervals [place] Rate: 73 P: 4 IA: 135 QRS: 6 QRSD: 92 T: 9 QT: 372 QTc: 412 Interpretive Statements SINUS RHYTHM LOW QRS VOLTAGE IN PRECORDIAL LEADS [QRS DEFLECTION < 1.0 mV IN CHEST LEADS] SLIGHT ANTERIOR T-WAVE INVERSION WHICH MAY BE A NORMAL VARIANT THOUGH CONSIDER ISCHEMIA. NO PREVIOUS ECG AVAILABLE FOR COMPARISON Electronically Signed On 10-24-2022 19:51:01 STADIUM MANAGER by Meagan Reese M.D.
[2022-10-24 17:58] LABS: Basophils Absolute Auto 0.1 K/mm3 (0.0-0.1); Basophils Percent Auto 0.8 % (0.2-1.2); Eosinophils Absolute Auto 0.3 K/mm3 (0-0.3); Eosinophils Percent Auto 3.5 % (0-4.4); Hematocrit 39.5 % (37.0-47.0); Hemoglobin 13.7 g/dL (12.0-15.0); Immature Granulocyte Absolute 0.02 K/mm3 (0.00-0.031); Immature Granulocyte Percent A 0.3 % (0-0.5); Lymphocytes Absolute Auto 2.86 K/mm3 (0.9-3.2); Lymphocytes Percent Auto 37.1 % (18.3-44.2); Mean Corpuscular HGB Conc 34.7 g/dl (32-36); Mean Corpuscular Hemoglobin 31.8 pg (26-34); Mean Corpuscular Volume 91.6 fl (80-100); Mean Platelet Volume 9.2 fl (7.4-10.4); Monocytes Absolute Auto 0.5 K/mm3 (0.1-0.6); Monocytes Percent Auto 6.7 % (2.6-8.5); Neutrophils Percent Auto 51.6 % (45.5-73.1); Platelet Count Result 325 k/mm3 (150-375); Red Blood Count 4.31 M/mm3 (4.2-5.4); Red Cell Distribution Width 12.1 % (11.5-14.5); White Blood Count 7.7 K/mm3 (4.5-10.0)
[2022-10-24 18:11] LABS: Appearance Urine Clear (Clear); Bilirubin Urine Negative (Negative); Blood Urine Negative (Negative); Color Urine Yellow (Yellow); Glucose Urine UA Negative (Negative); Ketones Urine Negative (Negative); Leukocyte Esterase Ur Trace LEU/UL (Negative); Nitrate Urine Negative (Negative); Protein Urine Negative (Negative); Specific Grav Ur 1.015 (1.001-1.035); Urobilinogen Urine 0.2 mg/dL (<2.0)
[2022-10-24 18:16] LABS: Alanine Aminotransferase 24 U/L (6-35); Albumin Level 4.3 g/dL (3.5-5.1); Alkaline Phosphatase 69 U/L (38-126); Anion Gap 7 mmol/L (8-16); Aspartate Amino Transferase 24 U/L (14-36); Bilirubin,Total 0.3 mg/dL (0.2-1.3); Blood Urea Nitrogen 25 mg/dL (7-17); Calcium 8.8 mg/dL (8.4-10.2); Carbon Dioxide 32 mmol/L (22-30); Chloride 100 mmol/L (98-107); Estimated CRCL calculation 100 ml/min; Estimated Glomerular Filt Rate > 60; Glucose 97 mg/dL (65-110); Lipase 155 U/L (23-300); Potassium 3.5 mmol/L (3.4-5.0); Sodium 139 mmol/L (137-145)
[2022-10-24 18:20] LABS: Add Urine Microscopic? YES; RBC Urine 0-2 /hpf (0-2); Squamous Epithelial Cell Urine Many /hpf (Few); WBC Urine 0-3 /hpf
[2022-10-24 22:33] LABS: Pregnancy On Board Control Positive; Urine Pregnancy Test Negative
--- NOTE | 2022-10-24 22:35 | ED.GENADULT ---
HPI - General Adult General Chief complaint: Abdominal Pain Stated complaint: spleen pain Time Seen by Provider: 10/24/22 21:50 History of Present Illness HPI narrative: This is a 42-year-old female with a history of chronic back pain fibromyalgia presenting to ED for left-sided pain. Patient's medical course started approximately 11 months ago when she has been treated on and off for esophagitis as well as fibromyalgia. Over the last 2-3 days she has noticed more pain on her left flank that goes up into her left shoulder and down into her left hip. It is 8/ 10 in intensity. She deals with this pain frequently and says that this is her typical fibromyalgia and back pain. Is worse with movement. Usually she takes ibuprofen or naproxen but she has not taken any today. Patient has also been dealing with an episode of nausea and vomiting per day and is having difficulty eating. This is not new for her. She denies any other complaints. 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 She is concerned that her pain is due to an aneurysmal rupture. Related Data Home Medications Medication Instructions Recorded Confirmed metoprolol succinate 50 mg 50 mg PO DAILY 12/02/19 12/02/19 tablet,extended release 24 hr lisinopril 20 1 tablet PO DAILY 10/15/22 mg-hydrochlorothiazide 25 mg tablet Allergies Allergy/AdvReac Type Severity Reaction Status Date / Time codeine Allergy Unknown Verified 10/24/22 21:45 [facility] Past Medical History Medical History Abnormal computed tomography of abdomen and pelvis Chest pain Coffee ground emesis Epigastric pain Hypertension LUQ abdominal pain Melena Nausea and vomiting Obesity Splenic artery aneurysm Weight loss Surgical History Surgical History History of back surgery History of hysterectomy Social History Social History Smoking status: Never smoker Alcohol intake: never Substance use: current Substance use type: marijuana Living arrangements: with family Exam Narrative: APPEARANCE: No apparent distress. Head: atraumatic. EYES: EOMI, NOSE: Atraumatic NECK: Trachea midline RESPIRATORY: No increased rate of breathing clear to auscultation bilateral CARDIOVASCULAR: RRR, no peripheral edema ABDOMINAL: Non-distended , soft nontender no guarding or rebound MUSCULOSKELETAl: tenderness to palpation over the left-sided paraspinal muscles, worse in the thoracic region. No overlying skin changes. NEURO: Alert. Moving 4/4 extremities SKIN:: Warm, dry. Normal color PSYCHIATRIC: Normal affect Course Vital Signs Vital signs: Vital Signs Temperature 98.5 F 10/24/22 17:30 Pulse Rate 89 10/24/22 17:30 Respiratory Rate 20 10/24/22 17:30 Blood Pressure 128/100 H 10/24/22 17:30 Pulse Oximetry 100 10/24/22 17:30 Oxygen Delivery Room Air 10/24/22 17:30 Temperature 98.5 F 10/24/22 17:30 Pulse Rate 89 10/24/22 17:30 Respiratory Rate 20 10/24/22 17:30 Blood Pressure 128/100 H 10/24/22 17:30 Pulse Oximetry 100 10/24/22 17:30 Oxygen Delivery Room Air 10/24/22 17:30 Medical Decision Making [facility] Narrative Medical decision making narrative: -Presentation: 42-year-old female with chronic pain presenting with left-sided body pain. Patient is concerned that she has a ruptured splenorenal aneurysm. Patient is well-appearing with stable vital signs. -DDX includes but is not limited to: Fibromyalgia, chronic back pain, pyelonephritis, spleen pathology -Co-morbidities complicating care: fibromyalgia, chronic back pain, chronic nausea vomiting abdominal pain -Social determinants of health: patient lives with her . -External Chart Review: Review of previous ER records and CT scans -Hx from independent Sources: [facility]
[2022-10-24] MEDS: KETOROLAC 15 MG/ML VIAL (*BKC) IV PUSH (22:48)
[2022-10-24] MEDS: ONDANSETRON INJ 4 MG/2 ML VIAL IV PUSH (22:48)
[2022-10-25 00:05] VITALS: BP 112/80; PULSE 95; RESP 16; O2SAT 96
== END 2022-10-25 00:05 | disposition home or self-care (01) ==
PROVIDERS: Emergency Medicine; Emergency Provider Emergency Medicine; PCP Family Medicine
DX: R11.2 Nausea with vomiting, unspecified (principal); M79.7 Fibromyalgia; M54.9 Dorsalgia, unspecified; G89.29 Other chronic pain; I10 Essential (primary) hypertension
CPT/HCPCS: 36415; 80053; 81001; 81025; 83690; 85025; 93005; 96365; 96375; 99284; J0131; J1885; J2405

== ENCOUNTER 2022-11-19 01:07 | Day surgery (SDC) | payer OTHER, SELFPAY ==
[2022-11-12 15:39] VITALS: BMI 42.3
[2022-11-19 10:10] VITALS: BP 132/87; PULSE 63; RESP 18; TEMP 36.1; O2SAT 100; BMI 42.3
[2022-11-19] MEDS: LACTATED RINGERS 1,000 ML 150 ML IV CONT (10:20)
--- NOTE | 2022-11-19 10:55 | P.PNAN_ITS ---
Anes - Initial Pre Proc Eval Procedure: Operation Date: 11/19/22 11:30 Proposed Procedures p Esophagogastroduodenoscopy - Mariano Hartman MD Date/Time: 11/19/22 10:55 Surgeon: Mariano Hartman MD Pre Op Diagnosis: abdominal pain Patient Data Age: 42 Gender: F Height: 1.57 m Weight: 105 kg Last Vital Signs Temp 36.1 C L 11/19/22 10:10 Pulse 63 11/19/22 10:10 Resp 18 11/19/22 10:10 BP 132/87 11/19/22 10:10 Pulse Ox 100 11/19/22 10:10 O2 Del Method Room Air 11/19/22 10:10 Allergies Allergy/AdvReac Type Severity Reaction Status Date / Time adhesive tape Allergy Intermediate Rash Verified 11/19/22 10:08 codeine AdvReac Intermediate Vomiting Verified 11/19/22 10:08 Home Medications Medication Instructions Recorded Confirmed Type metoprolol succinate 50 mg 50 mg PO DAILY 12/02/19 11/19/22 History tablet,extended release 24 hr omeprazole 40 mg capsule,delayed 40 mg PO BID #60 caps 10/15/22 11/19/22 Rx release Patient hx anesthesia problems: none Family hx anesthesia problems: none Results Review: All pre-operative results and documents have been reviewed as part of the pre- operative evaluation. [facility] Past Medical History Medical History Abnormal computed tomography of abdomen and pelvis Chest pain Coffee ground emesis Epigastric pain Hypertension LUQ abdominal pain Melena Nausea and vomiting Obesity Splenic artery aneurysm Weight loss Surgical History Surgical History History of back surgery History of hysterectomy Social History Social History Smoking packs per day: 0.5 Smoking cigarettes per day: 10.0 Years smoked: 2 Smoking pack-years: 1.00 Smoking status: Former smoker Tobacco type: cigarettes Alcohol intake: never Substance use: never Substance use type: marijuana Other substance usage details: CBD GUMMIES OCC. FOR FIBROMYALGIA Living arrangements: with family Spiritual care concerns: No Anes - Eval Final PreProcedure Day of Procedure 11/19/22 10:55 Patient weight: morbidly obese Heart: regular rate and rhythm Lungs: clear to auscultation Airway: Mallampati scale class II Neurological: alert and oriented Last oral intake: >/= 8 hours ASA classification: III Emergent: no Anesthetic plan: proceed Anesthesia type and monitoring: general GIVS and standard monitoring Results Review: All pre-operative results and documents have been reviewed as part of the pre-operative evaluation. Informed Consent: The patient's anesthetic plan and its attendant risks and benefits were discussed with the patient/family/POA. Questions were solicited and answers provided to the satisfaction of the patient/family/POA.
[2022-11-19 11:32] VITALS: BP 139/89; PULSE 63; RESP 20; O2SAT 98
--- NOTE | 2022-11-19 11:39 | PM.HPGS ---
History of Present Illness History of Present Illness Consent: Risks, benefits, and alternatives have been discussed and questions answered. Patient agrees to proceed with procedure. Chief complaint: abdominal pain Narrative: Kiara Clark is a 42 year old female with luq pain and nausea, never had egd Review of Systems Review of Systems: CONSTITUTIONAL: Denies fever, chills, or sweats. EYES: Denies visual changes, redness, or discharge. ENT: Denies rhinorrhea, congestion, sore throat, or otalgia. CARDIOVASCULAR: Denies current chest pain, palpitations, or edema. RESPIRATORY: Denies cough or dyspnea. GASTROINTESTINAL: Reports upper abdominal pain, nausea and vomiting GENITOURINARY: Denies dysuria or hematuria. SKIN: Denies rash or itching. MUSCULOSKELETAL: Reports occasional radiation of the pain to the left back NEUROLOGIC: Denies headache, numbness, or weakness. [facility] Past Medical History Medical History Abnormal computed tomography of abdomen and pelvis Chest pain Coffee ground emesis Epigastric pain Hypertension LUQ abdominal pain Melena Nausea and vomiting Obesity Splenic artery aneurysm Weight loss Surgical History Surgical History History of back surgery History of hysterectomy Social History Social History Smoking packs per day: 0.5 Smoking cigarettes per day: 10.0 Years smoked: 2 Smoking pack-years: 1.00 Smoking status: Former smoker Tobacco type: cigarettes Alcohol intake: never Substance use: never Substance use type: marijuana Other substance usage details: CBD GUMMIES OCC. FOR FIBROMYALGIA Living arrangements: with family Spiritual care concerns: No Meds Home Medications and Allergies Home Medications Medication Instructions Recorded Confirmed Type metoprolol succinate 50 mg 50 mg PO DAILY 12/02/19 11/19/22 History tablet,extended release 24 hr pantoprazole 40 mg tablet,delayed 40 mg PO BID #60 tabs 11/19/22 Rx release (Protonix) Allergies Allergy/AdvReac Type Severity Reaction Status Date / Time adhesive tape Allergy Intermediate Rash Verified 11/19/22 10:08 codeine AdvReac Intermediate Vomiting Verified 11/19/22 10:08 Vital Signs Vital Signs - 24 hr 11/19/22 10:10 Temperature 97.0 F L Pulse Rate 63 Respiratory Rate 18 Blood Pressure 132/87 Pulse Oximetry 100 Oxygen Delivery Room Air Exam Const: General: comfortable and no acute distress HENMT: Face/Nose/Sinus: Normal nares present Eyes: General: appearance normal, both eyes and all related structures Neck: Neck: no JVD Resp: Auscultation: clear to auscultation bilaterally Cardio: Rate: regular rate Rhythm: regular rhythm GI: Inspection: non-distended GI Palp: Yes Soft to palpation Skin: General skin exam: normal color Neuro: General: gait normal Speech: normal speech Extrem: General: normal to inspection Psych: Mental Status: mental status grossly normal Assessment and Plan Assessment and plan (1) Nausea and vomiting: Code(s): R11.2 - Nausea with vomiting, unspecified Status: Acute Assessment and Plan: egd with bx on omeprazole but not helping much (2) LUQ abdominal pain: Code(s): R10.12 - Left upper quadrant pain Status: Acute
[2022-11-19 11:42] VITALS: BP 132/88; PULSE 63; RESP 18; O2SAT 96
[2022-11-19 11:52] VITALS: BP 135/91; PULSE 62; RESP 22; O2SAT 98
== END 2022-11-19 12:01 | disposition home or self-care (01) ==
PROVIDERS: PCP Family Medicine; Visit Provider Internal Medicine Gastroenterology
PROC: 0DJ08ZZ Inspection of Upper Intestinal Tract, Via Natural or Artificial Opening Endoscopic (ICD-10-PCS; CPT 43235; principal; 2022-11-19 11:30)
DX: R10.12 Left upper quadrant pain (principal); R11.0 Nausea; K25.9 Gastric ulcer, unspecified as acute or chronic, without hemorrhage or perforation; K29.70 Gastritis, unspecified, without bleeding; I10 Essential (primary) hypertension; I72.8 Aneurysm of other specified arteries; M79.7 Fibromyalgia; Z87.891 Personal history of nicotine dependence
CPT/HCPCS: 43239; 87081; 88305; 88342; J2704; J7120

== ENCOUNTER 2023-03-11 04:37 | Day surgery (SDC) | payer OTHER, SELFPAY ==
[2023-03-07 16:04] VITALS: BMI 44.4
[2023-03-11 10:40] VITALS: BP 150/115; PULSE 78; RESP 20; TEMP 36.3; O2SAT 100; BMI 44.9
--- NOTE | 2023-03-11 10:50 | WPDANESEPPF ---
Anes - Initial Pre Proc Eval Procedure: Operation Date: 03/11/23 11:45 Proposed Procedures p Esophagogastroduodenoscopy - Mariano Hartman MD Date/Time: 03/11/23 10:50 Surgeon: Mariano Hartman MD Pre Op Diagnosis: gastric ulcer Patient Data Age: 42 Gender: F Height: 1.57 m Weight: 111.5 kg Last Vital Signs Temp 97.3 F L 03/11/23 10:40 Pulse 78 03/11/23 10:40 Resp 20 03/11/23 10:40 BP 150/115 H 03/11/23 10:40 Pulse Ox 100 03/11/23 10:40 O2 Del Method Room Air 03/11/23 10:40 Allergies Allergy/AdvReac Type Severity Reaction Status Date / Time adhesive tape Allergy Intermediate Rash Verified 03/11/23 10:39 codeine AdvReac Intermediate Vomiting Verified 03/11/23 10:39 Home Medications Medication Instructions Recorded Confirmed Type metoprolol succinate 50 mg 50 mg PO DAILY 12/02/19 03/11/23 History tablet,extended release 24 hr pantoprazole 40 mg tablet,delayed 40 mg PO BID #60 tabs 11/19/22 03/11/23 Rx release (Protonix) Patient hx anesthesia problems: none Family hx anesthesia problems: none Results Review: All pre-operative results and documents have been reviewed as part of the pre-operative evaluation. [facility] Past Medical History Medical History Abnormal computed tomography of abdomen and pelvis Chest pain Coffee ground emesis Epigastric pain Hypertension LUQ abdominal pain Melena Nausea and vomiting Obesity Splenic artery aneurysm Weight loss Surgical History Surgical History History of back surgery History of hysterectomy Social History Social History Smoking packs per day: 0.5 Smoking cigarettes per day: 10.0 Years smoked: 2 Smoking pack-years: 1.00 Smoking status: Former smoker Tobacco type: cigarettes Alcohol intake: never Substance use: current Substance use type: other Other substance usage details: CBD Gummies occasional Living arrangements: with family Spiritual care concerns: No Anes - Eval Final PreProcedure Day of Procedure 03/11/23 10:50 Patient weight: morbidly obese Heart: regular rate and rhythm Lungs: clear to auscultation Airway: Mallampati scale class II Neurological: alert and oriented Last oral intake: >/= 8 hours ASA classification: III Emergent: no Anesthetic plan: proceed Anesthesia type and monitoring: general GIVS and standard monitoring Results Review: All pre-operative results and documents have been reviewed as part of the pre-operative evaluation. Informed Consent: The patient's anesthetic plan and its attendant risks and benefits were discussed with the patient/family/POA. Questions were solicited and answers provided to the satisfaction of the patient/family/POA.
[2023-03-11] MEDS: LACTATED RINGERS 1,000 ML 150 ML IV CONT (10:51)
--- NOTE | 2023-03-11 10:53 | PM.HPGS ---
History of Present Illness History of Present Illness Consent: Risks, benefits, and alternatives have been discussed and questions answered. Patient agrees to proceed with procedure. Chief complaint: gastric ulcer Narrative: Kiara Clark is a 42 year old female with gastric ulcer here for follow-up, still with nausea, using ppi twice daily. She is not using antiemetics. Also found to have small splenic artery aneurysm (she has seen cardiology and referred to see vascular at another institution). Review of Systems Constitutional: Constitutional: Denies headache(s) and Denies weakness Eyes: Eyes: Denies blurry vision ENT: Reports Normal hearing present, Denies headache(s) and Denies neck pain Cardiovascular: Cardiovascular: Denies chest pain and Denies dyspnea Respiratory: Respiratory: Denies dyspnea Gastrointestinal: Gastrointestinal: Reports no additional gastrointestinal complaints Genitourinary: Genitourinary: Denies dysuria Musculoskeletal: Musculoskeletal: Denies neck pain Integumentary/Breasts: Skin/Breast: Denies dry skin Neurologic: Reports Normal hearing present, Denies headache(s) and Denies weakness Psychiatric: Psychiatric: Denies anxiety Endocrine: Endocrine: Denies change in body appearance Hematologic/Lymphatic: Hematologic/Lymphatic: Denies easy bleeding Allergic/Immunologic: Allergic/Immunologic: Denies urticaria PMFSH Past Medical History Medical History (Updated 03/11/23 @ 10:55 by Mariano Hartman MD) Abnormal computed tomography of abdomen and pelvis Chest pain Coffee ground emesis Epigastric pain Gastric ulcer Hypertension LUQ abdominal pain Melena Nausea and vomiting Obesity Splenic artery aneurysm Weight loss Surgical History Surgical History History of back surgery History of hysterectomy Social History Social History Smoking packs per day: 0.5 Smoking cigarettes per day: 10.0 Years smoked: 2 Smoking pack-years: 1.00 Smoking status: Former smoker Tobacco type: cigarettes Alcohol intake: never Substance use: current Substance use type: other Other substance usage details: CBD Gummies occasional Living arrangements: with family Spiritual care concerns: No Meds Home Medications and Allergies Home Medications Medication Instructions Recorded Confirmed Type metoprolol succinate 50 mg 50 mg PO DAILY 12/02/19 03/11/23 History tablet,extended release 24 hr pantoprazole 40 mg tablet,delayed 40 mg PO BID #60 tabs 11/19/22 03/11/23 Rx release (Protonix) Allergies Allergy/AdvReac Type Severity Reaction Status Date / Time adhesive tape Allergy Intermediate Rash Verified 03/11/23 10:39 codeine AdvReac Intermediate Vomiting Verified 03/11/23 10:39 Vital Signs Vital Signs - 24 hr 03/11/23 10:40 Temperature 97.3 F L Pulse Rate 78 Respiratory Rate 20 Blood Pressure 150/115 H Pulse Oximetry 100 Oxygen Delivery Room Air Exam Const: General: comfortable and no acute distress HENMT: Face/Nose/Sinus: Normal nares present Eyes: General: appearance normal, both eyes and all related structures Neck: Neck: no JVD Resp: Auscultation: clear to auscultation bilaterally Cardio: Rate: regular rate Rhythm: regular rhythm GI: Inspection: non-distended GI Palp: Yes Soft to palpation Skin: General skin exam: normal color Neuro: General: gait normal Speech: normal speech Extrem: General: normal to inspection Psych: Mental Status: mental status grossly normal Assessment and Plan Assessment and plan (1) Gastric ulcer: Code(s): K25.9 - Gastric ulcer, unspecified as acute or chronic, without hemorrhage or perforation Status: Acute Assessment and Plan: egd to assess on ppi (2) Chest pain: Code(s): R07.9 - Chest pain, unspecified Status: Acute (3) Spleni
[2023-03-11 11:00] VITALS: BP 127/87; PULSE 78; RESP 18; O2SAT 95
[2023-03-11 11:10] VITALS: BP 100/76; PULSE 78; RESP 15; O2SAT 98
[2023-03-11 11:20] VITALS: BP 115/77; PULSE 85; RESP 17; O2SAT 100
== END 2023-03-11 11:58 | disposition home or self-care (01) ==
PROVIDERS: PCP Family Medicine; Visit Provider Internal Medicine Gastroenterology
PROC: 0DJ08ZZ Inspection of Upper Intestinal Tract, Via Natural or Artificial Opening Endoscopic (ICD-10-PCS; CPT 43235; principal; 2023-03-11 11:45)
DX: Z09 Encounter for follow-up examination after completed treatment for conditions other than malignant neoplasm (principal); K29.50 Unspecified chronic gastritis without bleeding; Z87.11 Personal history of peptic ulcer disease; I10 Essential (primary) hypertension; I72.8 Aneurysm of other specified arteries; E66.01 Morbid (severe) obesity due to excess calories; Z68.42 Body mass index [BMI] 45.0-49.9, adult; Z87.891 Personal history of nicotine dependence; F12.90 Cannabis use, unspecified, uncomplicated
CPT/HCPCS: 43239; 88305; J2704; J7120

== ENCOUNTER 2023-03-26 09:33 | Outpatient (CLI) | payer OTHER, SELFPAY ==
--- NOTE | ~2023-03-26 | NM_ITS ---
EXAM: NM gastric emptying study DATE: 03/26/2023 14:08 INDICATION: Nausea and vomiting, unspecified. TECHNIQUE: A gastric emptying study was performed using the methodology of Vernon OLVERA, et al. J Nucl Med 2007; 48:568-572. The patient was given a meal consisting of 2 scrambled eggs labeled with 1.019 mCi Tc-99m sulfur colloid, 2 slices of toast, two packages of jam, and approximately 120 mL of water . Simultaneous anterior and posterior 1-min images of the abdomen were obtained with the patient supi ne at multiple time points over a total period of 4 hours. The geometric mean of anterior and posteri or views was determined, and the percentage retention was calculated for each time point. COMPARISON: CT abdomen and pelvis 10/08/22 FINDINGS: Gastric retention of the radiotracer-labeled meal was 58%, 36%, and 5% at the 1-hour, 2-ho ur, and 4-hour time points, respectively. With this technique, apparent rapid gastric emptying is sug gested by <30% gastric retention at 1 hour. Delayed gastric emptying is defined by gastric retention of >90% at 1 hour, >60% retention at 2 hours, or >10% retention at 4 hours. IMPRESSION: 1. Normal gastric emptying. Reviewed, dictated and finalized at location A. IMPRESSION: 1. Normal gastric emptying.
== END 2023-03-26 09:34 | disposition home or self-care (01) ==
PROVIDERS: PCP Family Medicine; Visit Provider Internal Medicine Gastroenterology
DX: R11.2 Nausea with vomiting, unspecified (principal)
CPT/HCPCS: 78264; A9541

== ENCOUNTER 2023-07-01 16:18 | Outpatient (CLI) | payer OTHER, SELFPAY ==
--- NOTE | ~2023-07-01 | XR_ITS ---
Thoracic spine: Clinical Indication: Back pain AP and lateral views were performed. No fracture is seen. There is normal alignment of the vertebrae. The intervertebral disc spaces appe ar normal. Paravertebral soft tissues appear normal. Impression: No significant abnormalities noted. Reviewed, dictated and finalized at [facility]. Impression: No significant abnormalities noted.
--- NOTE | ~2023-07-01 | XR_ITS ---
AP and oblique views of the left ribs, and PA and lateral chest radiographs Clinical History: Pain Findings: No rib fracture is seen. Osseous alignment is anatomic. Lungs are clear, without focal cons olidation or pleural effusion. Cardiomediastinal contour is within normal limits. Soft tissues are un remarkable. Impression: No rib fracture is seen. Reviewed, dictated and finalized at [facility]. Impression: No rib fracture is seen.
[2023-07-01 16:34] LABS: Basophils Absolute Auto 0.06 K/mm3 (0.00-0.10); Basophils Percent Auto 0.9 % (0.0-1.0); Eosinophils Absolute Auto 0.43 K/mm3 (0.02-0.50); Eosinophils Percent Auto 6.3 % (1.0-6.0); Hematocrit 42.4 % (35.0-49.0); Hemoglobin 14.3 g/dL (12.0-15.0); Immature Granulocyte Absolute 0.01 K/mm3 (0.00-0.00); Immature Granulocyte Percent A 0.1 % (0.0-0.0); Lymphocytes Absolute Auto 2.72 K/mm3 (1.10-4.50); Lymphocytes Percent Auto 39.7 % (18.0-42.0); Mean Corpuscular HGB Conc 33.7 g/dL (32.0-36.0); Mean Corpuscular Hemoglobin 31.3 pg (27.0-31.0); Mean Corpuscular Volume 92.8 fL (78.0-102.0); Mean Platelet Volume 9.3 fl (9.2-11.8); Monocytes Absolute Auto 0.46 K/mm3 (0.10-0.90); Monocytes Percent Auto 6.7 % (2.0-11.0); Neutrophils Absolute Auto 3.2 K/mm3 (1.7-7.2); Neutrophils Percent Auto 46.3 % (50.0-70.0); Platelet Count Result 276 K/mm3 (150-420); Red Blood Count 4.57 M/mm3 (4.20-5.40); White Blood Count 6.9 K/mm3 (4.8-10.8)
[2023-07-01 16:50] LABS: Appearance Urine Clear (Clear); Bilirubin Urine Negative (Negative); Blood Urine Negative (Negative); Color Urine Yellow (Yellow); Glucose Urine UA Negative (Negative); Ketones Urine Negative (Negative); Leukocyte Esterase Ur Negative LEU/UL (Negative); Nitrate Urine Negative (Negative); Protein Urine Negative (Negative); Specific Grav Ur >= 1.030 (1.010-1.020); Urobilinogen Urine 0.2 mg/dL (0.2-1.0)
[2023-07-01 16:55] LABS: Add Urine Microscopic? NO
[2023-07-01 17:20] LABS: Alanine Aminotransferase 7 U/L (14-59); Albumin Level 3.6 g/dL (3.4-5.0); Alkaline Phosphatase 68 U/L (46-116); Amylase 35 U/L (25-115); Aspartate Amino Transferase 13 U/L (15-37); Bilirubin,Total 0.4 mg/dL (0.00-1.00); Blood Urea Nitrogen 9 mg/dL (7-18); Calcium 9.3 mg/dL (8.5-10.1); Carbon Dioxide 28 mmol/L (21-32); Estimated Glomerular Filt Rate > 60; Glucose 89 mg/dL (70-99); Lipase 35 U/L (16-77); Total Protein 7.3 g/dL (6.4-8.2)
[2023-07-01 17:31] LABS: Anion Gap 11 mmol/L (8-16); Chloride 102 mmol/L (98-108); Osmolality Calculated 289 mOsm/kg (285-295); Sodium 141 mmol/L (136-145)
== END 2023-07-01 16:19 | disposition home or self-care (01) ==
LOC: CHSLAB 16:20
PROVIDERS: PCP Family Medicine; Visit Provider Family Medicine
DX: R10.12 Left upper quadrant pain (principal)
CPT/HCPCS: 36415; 71046; 71100; 72072; 80053; 81003; 82150; 83690; 85025

== ENCOUNTER 2023-07-16 07:16 | Outpatient (CLI) | payer OTHER, SELFPAY ==
--- NOTE | ~2023-07-16 | CT_ITS ---
CT of the Abdomen and Pelvis: Indication: Splenic artery aneurysm, left flank pain Technique: 2.5 mm axial scans were obtained through the abdomen and pelvis following intravenous adm inistration of 100 cc of Omnipaque 350. Dose reduction technique was used on this scan by utilizing a utomated exposure control and iterative reconstruction technique. The dose-length product (DLP) was 1 412.53 mGy-cm. COMPARISON: 10/08/2022 Findings: Scans through the lung bases demonstrates stable 3 mm right lower lobe pulmonary nodule. The liver, spleen, pancreas, adrenals and kidneys are within normal limits. Cholecystectomy clips are present. No evidence of aortic aneurysm. There is a 1 cm splenic artery aneurysm near the splenic hi lum, with dense peripheral calcification, unchanged from prior exam. No lymphadenopathy. No bowel obstruction or bowel wall thickening. There is no evidence to suggest acute appendicitis. Images through the pelvis were performed. Urinary bladder unremarkable. 3.3 cm left adnexal cyst pres ent. No ascites. Impression: 1 cm splenic artery aneurysm, unchanged. 3.3 cm probable left adnexal cystic mass, similar to prior exam in appearance. Reviewed, dictated and finalized at location . GENCY ROOM ORDERLY Impression: 1 cm splenic artery aneurysm, unchanged. 3.3 cm probable left adnexal cystic mass, similar to prior exam in appearance.
[2023-07-16 07:41] LABS: Estimated Glomerular Filt Rate > 60
== END 2023-07-16 07:17 | disposition home or self-care (01) ==
LOC: CHSIMG 07:17
PROVIDERS: PCP Family Medicine
DX: I72.8 Aneurysm of other specified arteries (principal); R19.09 Other intra-abdominal and pelvic swelling, mass and lump
CPT/HCPCS: 74174; Q9967

== ENCOUNTER 2023-12-12 07:24 | Outpatient (CLI) | payer OTHER, SELFPAY ==
[2023-12-12 07:58] LABS: Cholesterol 235 mg/dL (0-200); HDL Direct 47 mg/dL; Triglycerides 162 mg/dL (<150)
[2023-12-12 08:09] LABS: LDL Cholesterol Direct 160 mg/dL
== END 2023-12-12 07:25 | disposition home or self-care (01) ==
LOC: ANHLAB 07:28
PROVIDERS: PCP Family Medicine; Visit Provider Internal Medicine Cardiovascular Disease
DX: I10 Essential (primary) hypertension (principal)
CPT/HCPCS: 36415; 80061

== ENCOUNTER 2024-03-20 10:11 | Outpatient (CLI) | payer OTHER, SELFPAY ==
[2024-03-20 11:15] LABS: Cholesterol 198 mg/dL (0-200); HDL Direct 38 mg/dL; Triglycerides 133 mg/dL (<150)
[2024-03-20 11:26] LABS: LDL Cholesterol Direct 135 mg/dL
== END 2024-03-20 10:12 | disposition home or self-care (01) ==
LOC: ANHLAB 10:13
PROVIDERS: PCP Family Medicine; Visit Provider Internal Medicine Cardiovascular Disease
DX: E78.5 Hyperlipidemia, unspecified (principal)
CPT/HCPCS: 36415; 80061

== ENCOUNTER 2025-02-11 12:40 | Outpatient (CLI) | payer OTHER, MEDICAID, SELFPAY ==
--- NOTE | ~2025-02-11 | MM_ITS ---
EXAMINATION: MM screening mike BI w luis HISTORY: Screening TECHNIQUE: Craniocaudal and mediolateral oblique 3-D tomosynthesis images were obtained and synthetic 2-D images were generated. CAD analysis was submitted and interpreted. COMPARISON: None available BREAST PARENCHYMAL COMPOSITION: The breasts are almost entirely fatty. FINDINGS: There is no evidence of suspicious mass, calcification, or architectural distortion to sug gest malignancy in either breast. IMPRESSION: 1. No mammographic evidence of malignancy. 2. Recommend routine screening mammography in one year. BI-RADS Category 1: Negative Reviewed, dictated and finalized at location B.
--- OUTSIDE RECORDS SUMMARY | 2025-02-11 13:11 | XMS_ITS | Clinical Summary ---
Author Organization [facility] Address [address] [place] [address] Care Team Providers Care Cloud Administrator Name Role Phone Lance Macedo MD Primary Care Provider [phone] Source Comments [facility],non-owned Affiliates and Associated Physician Practices is amultiple site organization consisting of ambulatory clinics and hospital sitesin [place], [place], [place] and [place]. This disclosure is being madepursuant to the Care Everywhere program and may not contain all information available regarding this patient. Last updated 18.[facility] Allergies No known active allergies Medications * Be aware that medications may not be up to date on this document. Alwaysverify current medications with the patient. pantoprazole EC (Protonix) 40 MG tablet 06/21/2023 Active metoprolol succinate XL 24hr (Toprol XL) 50 MG tablet 04/19/2023 Active lisinopril-hydroCH LOROthiazide (Prinzide; Zestoretic) 20-25 MG tablet 10/10/2022 Active carvedilol (Coreg) 6.25 MG tablet 06/21/2023 Acti ve Active Problems Problem Noted Date Diagnosed Date Myalgia 02/24/2014 Urge incontinence 02/24/2014 Stress incontinence 02/24/2014 Family History Medical History Relation Name Comments Diabetes Father Hypertension Father Endometriosis Mother Relation Name Status Comments Father Mother Social History Tobacco Use Types Packs/Day Years Used Date Smoking Tobacco: Every Day Cigarettes Tobacco Cessation:Ready to Q uit: Not Asked; Counseling Given: Not Answered Alcohol Use Standard Drinks/Week Comments No 0 (1 standard drink = 0.6 oz pur e alcohol) Comments Unknown Sex and Gender Information Value Date Recorded Sex Assigned at Not on file 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 Gender Identity Not on file Sexual Orientation Not on file Last Filed Vital Signs Vital Sign Reading Time Taken Comments Blood Pressure 165/126 07/01/2023 12:59 PM CDT Pulse 68 07/01/2023 12:59 PM CDT Temperature 36.1 C (97 F) 07/01/2023 12:59 PM CDT Respiratory Rate - - Oxygen Saturation 99% 07/01/2023 12:59 PM CDT Inhaled Oxygen Concentration - - Weight 109.8 kg (242 lb) 07/01/2023 12:59 PM CDT Height 157.5 cm (5' 2) 07/01/2023 12:59 PM CDT Body Mass Index 44.26 07/01/2023 12:59 PM CDT Plan of Treatment Health Maintenance Due Date Last Done Comments COLOGUARD (AGES 45-75) - COL ON CA SCREENING 1979 COLON MONITORING 1979 COLONOSCOPY - COLON CA SCREENING 1979 CT COLONOGRAPHY - COLON CA SCREENING 1979 Colorectal Cancer Screening 1979 FIT - COLON CA SCREENING 1979 FLEX SIG - COLON CA SCREENING 1979 LIPID TESTING 1979 MAMMOGRAM 1979 PAP SMEAR 1979 HIV SCREENING 1994 DTAP/TDAP/TD VACCINES (1 - Tdap) 1998 HEPATITIS B VACCINE (1 of 3 - 19+ 3-dose series) 1998 PNEUMOCOCCAL VACCINE (1 of 2 - PCV) 1998 SCREENING FOR DIABETES 07/01/2023 COVID-19 VACCINE (1 - 2023-2 5 season) 2024 DEPRESSION SCREENING 09/09/2024 INFLUENZA VACCINE (Season Ended) 2025 ZOSTER VACCINE (1 of 2) 2029 HEPATITIS C SCREENING Completed 2019 HIB VACCINE Aged Out No longer eligi ble based on patient's age to complete this topic HPV VACCINE Aged Out No longer eligi ble based on patient's age to complete this topic MENINGOCOCCAL (Group B) VACC INE SHARED DECISION-MAKING Aged Out No longer eligibl e based on patient's age to complete this topic MENINGOCOCCAL GROUPS A/C/Y/W VACCINE Aged Out No longer eligible b ased on patient's age to complete this topic Insurance [facility] Care Teams Cloud Administrator Relationship Specialty Start Date End Date Lance Macedo MD [address] [place] [id number] PCP - General 02/24/14
== END 2025-02-11 12:41 | disposition home or self-care (01) ==
LOC: CHSIMG 12:43
PROVIDERS: PCP Family Medicine; Visit Provider Family Medicine
DX: Z12.31 Encounter for screening mammogram for malignant neoplasm of breast (principal)
CPT/HCPCS: 77063; 77067

== ENCOUNTER 2025-05-19 01:48 | Day surgery (SDC) | payer OTHER, MEDICAID, SELFPAY ==
[2025-05-05 13:43] VITALS: BMI 42.1
--- OUTSIDE RECORDS SUMMARY | 2025-05-19 01:53 | XMS_ITS | Clinical Summary ---
Author Organization [facility] Address [address] [place] [id number] Care Team Providers Care Stock Hanger Name Role Phone Lance Macedo MD Primary Care Provider [phone] Social History Tobacco Use Types Packs/Day Years Used Date Smoking Tobacco: Smoker, Current Status Unknown Comments Unknown Sex and Gender Information Value Date Recorded Sex Assigned at Not on file Legal Sex Female 6:07 PM CDT Gender Identity Not on file Sexual Orientation Not on file Last Filed Vital Signs Vital Sign Reading Time Taken Comments Blood Pressure 124/78 01/26/2014 2:50 PM CDT Pulse 80 01/26/2014 2:50 PM CDT Temperature - - Respiratory Rate 18 02/25/2009 8:34 AM CDT Oxygen Saturation - - Inhaled Oxygen Concentration - - Weight 114.3 kg (252 lb) 01/26/2014 2:50 PM CDT Height 157.5 cm (5' 2) 01/26/2014 2:50 PM CDT Body Mass Index 46.09 01/26/2014 2:50 PM CDT Plan of Treatment Health Maintenance Due Date Last Done Comments Cervical Cancer Screening Pa p Smear (Age 30 to 64) Every 3 Years 1979 Colorectal Cancer Screening Colonoscopy (10 Years) 1979 Annual Physical 1982 DTaP, Tdap and Td Vaccines ( 1 - Tdap) 1998 Hepatitis B Vaccines (1 of 3 - 19+ 3-dose series) 1998 Pneumococcal Vaccine: Pediat rics (0 to 5 Years) and At-Risk Patients (6 to 49 Years) (1 of 2 - PCV) 1998 HPV Vaccines (1 - 3-dose SCD M series) 2006 Cervical Cancer Screening Pa p with HPV Testing (Age 30 to 64) Every 5 Years 2009 Cervical Cancer Screening with HPV 2009 Mammogram Screening 2019 COVID-19 Vaccine (2023-2 5 season) 2024 Hepatitis C Completed 2019 Meningococcal B Vaccine Aged Out No l onger eligible based on patient's age to complete this topic Meningococcal Vaccine Aged Out No waldemar estefany eligible based on patient's age to complete this topic RSV Immunizations Under 20 Months Aged Out No longer eligible based on patient's age to complete this topic Procedures Procedure Name Priority Date/Time Associated Diagnosis Comments HEPATITIS C ANTIBODY Routine 2019 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 DOES NOT EXCLUDE THE POSSIBILITY OF EXPOSURE TO HCV. 2019 9:14 AM EMG TECHNICIAN Ned Kumar MD LABORATORY Final Result [facility] [address] [place] [address], [id number] from Last 3 Months or Most Recently Relevant to Health Maintenance [place] [address] [address] [place] [address] Care Teams Stock Hanger Relationship Specialty Start Date End Date Lance Macedo MD [address] [place] [address] PCP - General FAMILY PRACTICE 08/28/19
[2025-05-19 06:38] VITALS: BP 135/96; PULSE 96; RESP 16; TEMP 36.1; O2SAT 99; BMI 41.8
[2025-05-19] MEDS: LACTATED RINGERS 1,000 ML 150 ML IV CONT (06:52)
--- NOTE | 2025-05-19 07:02 | WPDANESEPPF ---
Anes - Initial Pre Proc Eval Procedure: Operation Date: 05/19/25 08:00 Proposed Procedures p Screening Colonoscopy - Alejandro Crowley MD Date/Time: 05/19/25 07:02 Surgeon: Alejandro Crowley MD Pre Op Diagnosis: Screening Patient Data Age: 44 Gender: F Height: 1.57 m Weight: 103.8 kg Last Vital Signs Temp 36.1 C L 05/19/25 06:38 Pulse 96 05/19/25 06:38 Resp 16 05/19/25 06:38 BP 135/96 H 05/19/25 06:38 Pulse Ox 99 05/19/25 06:38 O2 Del Method Room Air 05/19/25 06:38 Allergies Allergy/AdvReac Type Severity Reaction Status Date / Time adhesive tape Allergy Intermediate Rash Verified 05/19/25 06:37 codeine AdvReac Intermediate Vomiting Verified 05/19/25 06:37 Home Medications ?Medication ?Instructions ?Recorded ?Confirmed ?Type carvedilol 6.25 mg tablet See Rx Instructions .Route 10/09/24 05/19/25 Rx .COMPLEX #60 tabs Patient hx anesthesia problems: none Family hx anesthesia problems: none Results Review: All pre-operative results and documents have been reviewed as part of the pre-operative evaluation. [facility] Past Medical History Medical History (Updated 05/18/25 @ 09:14 by Oren Philip DO) Fibromyalgia HAYDEE (obstructive sleep apnea) Gastric ulcer Coffee ground emesis Melena Abnormal computed tomography of abdomen and pelvis Chest pain Obesity Splenic artery aneurysm Weight loss Nausea and vomiting LUQ abdominal pain Epigastric pain Hypertension Surgical History Surgical History History of hysterectomy History of back surgery Social History Social History (Updated 05/18/25 @ 09:14 by Oren Philip DO) Smoking packs per day: 0.5 Smoking cigarettes per day: 10.0 Years smoked: 2 Smoking pack-years: 1.00 Smoking status: Former smoker Tobacco type: cigarettes Alcohol intake: never Substance use: current Substance use type: marijuana Other substance usage details: daily Last use: 05/05/25 Do You Feel Safe in your Home?: Yes Lack of Transportation: No Lack of Food: Never True Current Housing: I Have Housing Concerned About Future Housing: No Difficulty Paying Gas/Electric Bills: No Difficulty Paying for Meds: No Currently Unemployed: No Education: Associate Degree Difficulty w/ Childcare or Family Care: No Living arrangements: with family Spiritual care concerns: No Anes - Eval Final PreProcedure Day of Procedure 05/19/25 07:02 Patient weight: morbidly obese Heart: regular rate and rhythm Lungs: clear to auscultation Airway: Mallampati scale class II Neurological: alert and oriented Last oral intake: >/= 8 hours ASA classification: III Emergent: no Anesthetic plan: proceed Anesthesia type and monitoring: general GIVS and standard monitoring Results Review: All pre-operative results and documents have been reviewed as part of the pre-operative evaluation. Informed Consent: The patient's anesthetic plan and its attendant risks and benefits were discussed with the patient/family/POA. Questions were solicited and answers provided to the satisfaction of the patient/family/POA.
--- NOTE | 2025-05-19 07:46 | P.HP_ITS ---
H&P: HPI History of Present Illness Date/Time: 05/19/25 07:46 Chief Complaint: Screening colonoscopy Narrative: This is the patient's 2nd colonoscopy after more than 10 years.. There are no GI symptoms and there is no family history of colorectal cancer. Review of Systems Review of Systems: All systems reviewed & are unremarkable except as noted in HPI and below PMFSH Past Medical History Medical History (Updated 05/19/25 @ 07:47 by Alejandro Crowley MD) Fibromyalgia HAYDEE (obstructive sleep apnea) Gastric ulcer Coffee ground emesis Melena Abnormal computed tomography of abdomen and pelvis Chest pain Obesity Splenic artery aneurysm Weight loss Nausea and vomiting LUQ abdominal pain Epigastric pain Hypertension Surgical History Surgical History History of hysterectomy History of back surgery Social History Social History (Updated 05/18/25 @ 09:14 by Oren Philip DO) Smoking packs per day: 0.5 Smoking cigarettes per day: 10.0 Years smoked: 2 Smoking pack-years: 1.00 Smoking status: Former smoker Tobacco type: cigarettes Alcohol intake: never Substance use: current Substance use type: marijuana Other substance usage details: daily Last use: 05/05/25 Do You Feel Safe in your Home?: Yes Lack of Transportation: No Lack of Food: Never True Current Housing: I Have Housing Concerned About Future Housing: No Difficulty Paying Gas/Electric Bills: No Difficulty Paying for Meds: No Currently Unemployed: No Education: Associate Degree Difficulty w/ Childcare or Family Care: No Living arrangements: with family Spiritual care concerns: No Meds Home Medications and Allergies Home Medications ?Medication ?Instructions ?Recorded ?Confirmed ?Type carvedilol 6.25 mg tablet See Rx Instructions .Route 0 10/09/24 05/19/25 Rx .COMPLEX #60 tabs Allergies Allergy/AdvReac Type Severity Reaction Status Date / Time adhesive tape Allergy Intermediate Rash Verified 05/19/25 06:37 codeine AdvReac Intermediate Vomiting Verified 05/19/25 06:37 Vital Signs Vital Signs - 24 hr 05/19/25 06:38 Temperature 97 F L Pulse Rate 96 Respiratory Rate 16 Blood Pressure 135/96 H Pulse Oximetry 99 Oxygen Delivery Room Air Exam Const: General: cooperative and healthy appearing Resp: Effort & Inspection: normal respiratory effort and able to speak in complete sentences Auscultation: clear to auscultation bilaterally Cardio: Rate: regular rate Rhythm: regular rhythm GI: Inspection: normal to inspection GI Palp: No No hepatosplenomegaly present Auscultation: normal bowel sounds Rectal Exam: deferred Skin: General skin exam: normal color Psych: Appearance: grossly normal Mental Status: mental status grossly normal Assessment and Plan Assessment and plan (1) Encounter for screening colonoscopy: Code(s): Z12.11 - Encounter for screening for malignant neoplasm of colon Status: Acute Assessment and Plan: The patient is deemed a good candidate for the procedure. Consent signed. Will proceed.
[2025-05-19] MEDS: SIMETHICONE ORAL SUSPENSION 20 MG/0.3 ML 30 ML BOTTLE 0.6 ML IRRIGATION (08:01)
[2025-05-19 08:09] VITALS: BP 130/76; PULSE 98; RESP 27; O2SAT 98
[2025-05-19 08:19] VITALS: BP 141/97; PULSE 90; RESP 19; O2SAT 100
[2025-05-19 08:29] VITALS: BP 126/90; PULSE 77; RESP 22; O2SAT 100
== END 2025-05-19 08:37 | disposition home or self-care (01) ==
PROVIDERS: PCP Family Medicine; Referring Provider Family Medicine; Visit Provider Internal Medicine Gastroenterology
PROC: 0DJD8ZZ Inspection of Lower Intestinal Tract, Via Natural or Artificial Opening Endoscopic (ICD-10-PCS; CPT 45378; principal; 2025-05-19 08:00)
DX: Z12.11 Encounter for screening for malignant neoplasm of colon (principal); K57.30 Diverticulosis of large intestine without perforation or abscess without bleeding; K64.8 Other hemorrhoids; Z87.891 Personal history of nicotine dependence; F12.90 Cannabis use, unspecified, uncomplicated; E66.01 Morbid (severe) obesity due to excess calories; Z68.41 Body mass index [BMI] 40.0-44.9, adult
CPT/HCPCS: 45378; J2704; J7120